=== PATIENT | female | born 1980 | race Caucasian/White ===

== ENCOUNTER 2022-01-31 00:43 | Emergency (ER) | payer BC ==
[~2022-01-31 00:43] MED LIST: BACTRIM DS 8001 TA1 PO; BENADRYL25 MG PO; CEPHALEXIN500 M1 PO; EPI-PEN1 MG/ML MR; MOTRIN600 MG PO; MOTRIN800 MG PO; ORTHO-CYCLEN 21 EACH PO; PEPCID20 MG PO; PREDNICOT20 MG PO; ROBAXIN750 MG PO
== END 2022-01-31 04:35 | disposition home or self-care (01) ==
LOC: ED 00:43
DX: S61.211A Laceration without foreign body of left index finger without damage to nail, initial encounter (principal); Z79.899 Other long term (current) drug therapy; X58.XXXA Exposure to other specified factors, initial encounter; Y93.89 Activity, other specified; Y92.89 Other specified places as the place of occurrence of the external cause; Y99.8 Other external cause status

== ENCOUNTER 2022-11-24 00:14 | Emergency (ER) | payer BC ==
[2022-11-24] MEDS ORDERED: CEPHALEXIN500 M1 PO (02:48)
== END 2022-11-24 02:52 | disposition home or self-care (01) ==
LOC: ED 00:14
DX: S61.011A Laceration without foreign body of right thumb without damage to nail, initial encounter (principal); Z98.890 Other specified postprocedural states; W25.XXXA Contact with sharp glass, initial encounter; Y93.89 Activity, other specified; Y92.89 Other specified places as the place of occurrence of the external cause; Y99.8 Other external cause status

== ENCOUNTER 2025-06-28 04:08 | Emergency (ER) | payer BC ==
[~2025-06-28] VITALS: Ht 160 cm; Wt 104.3 kg
[2025-06-28] MEDS ORDERED: Bacitracin Zinc 14 GM TUBE T ONE (06:20)
== END 2025-06-28 06:25 | disposition home or self-care (01) ==
LOC: ED 04:08
DX: S01.81XA Laceration without foreign body of other part of head, initial encounter (principal); W22.8XXA Striking against or struck by other objects, initial encounter; Y93.89 Activity, other specified; Y92.89 Other specified places as the place of occurrence of the external cause; Y99.8 Other external cause status